=== PATIENT | female | born 1955 | race Caucasian/White ===

== ENCOUNTER 2020-07-16 12:29 | Emergency (ER) | payer OTHER, SELFPAY ==
--- NOTE | 2020-07-16 12:30 | DI.RAD_ITS ---
EXAM: XR ANKLE RT COMPLETE CLINICAL HISTORY: R/O fracture TECHNIQUE: COMPARISON: CR XR ANKLE LT COMPLETE from 07/16/2020 FINDINGS: Three views were obtained. There is a mildly displaced fracture of the distal fibula. Ankle mortise appears well maintained. There is moderate soft tissue swelling of the lateral aspect of the ankle. No additional fracture seen. IMPRESSION: RADIATION DOSE DELIVERED: Total DLP
--- NOTE | 2020-07-16 12:30 | DI.RAD_ITS ---
EXAM: XR ANKLE LT COMPLETE CLINICAL HISTORY: R/O fracture, deformity, fall TECHNIQUE: COMPARISON: CR XR ANKLE RT COMPLETE from 07/16/2020 FINDINGS: Three views of the ankle were obtained. There is marked soft tissue swelling adjacent to the lateral malleolus. There is a rounded ossific body adjacent to the tip of the lateral malleolus consistent with accessory ossicle. No evidence of acute fracture. The ankle mortise is well maintained. IMPRESSION: RADIATION DOSE DELIVERED: Total DLP
[2020-07-16 12:34] VITALS: BP 118/103; PULSE 52; RESP 18; TEMP 36.4; O2SAT 98
--- NOTE | 2020-07-16 12:35 | W.ED.GENAD ---
Discharge Plan Disposition Patient Disposition: HOME Condition: Stable Discharge Details Chief Complaint: Orthopedic Clinical Impression: Fracture of ankle, right, closed, Left ankle sprain Primary Care Provider: Stacia Moseley ED Provider: Juliana Reynolds Home Meds and New Rx's Prescriptions: New hydrocodone-acetaminophen 5-325 mg tablet 1 tab PO BID PRN (Reason: pain) Qty: 3 RF: 0 No Action sertraline 100 mg Tablet 150 mg PO DAILY RF: 0 omeprazole 20 mg Capsule,Delayed Release(Dr/Ec) 20 mg PO DAILY RF: 0 Discharge Instructions Instructions: Ankle Fracture (ED), Ankle Sprain (ED) Additional Instructions: Follow-up with orthopedics within 1 to 2 weeks. Use walking boot and splint as needed. Stay off of right ankle as much as possible. Rest, ice, compression, elevation. Take medications as needed. Please take Tylenol or Ibuprofen with food every 4-6 hours as needed for pain and swelling. Follow up with primary care provider in 3-5 days. Return to ED sooner if any worsening or concerns. Increase oral fluids. Stand Alone Forms: Physical Therapy Referral Referrals: Leandro Jo MD [ [facility] STAFF PHYSICIAN] - Medical Decision Making 65-year-old female presents to the ER via wheelchair after a trip and fall approximately 1 hour ago. Patient states that she was coming down 2 steps and her feet went out from under her landing on her left side. She reports bilateral ankle pain. She does have deformity noted to her left lateral malleolus, she also has swelling noted to her right lateral malleolus. She is nonambulatory upon arrival to the ER. Denies any loss of consciousness or hitting her head. Denies any neck back or any other injuries. She does report that she landed on her knees and her left shoulder. She took 2 [id number] Aleve prior to arrival. EXAM: XR ANKLE RT COMPLETE CLINICAL HISTORY: R/O fracture TECHNIQUE: COMPARISON: CR XR ANKLE LT COMPLETE from 07/16/2020 FINDINGS: Three views were obtained. There is a mildly displaced fracture of the distal fibula. Ankle mortise appears well maintained. There is moderate soft tissue swelling of the lateral aspect of the ankle. No additional fracture seen. EXAM: XR ANKLE LT COMPLETE CLINICAL HISTORY: R/O fracture, deformity, fall TECHNIQUE: COMPARISON: CR XR ANKLE RT COMPLETE from 07/16/2020 FINDINGS: Three views of the ankle were obtained. There is marked soft tissue swelling adjacent to the lateral malleolus. There is a rounded ossific body adjacent to the tip of the lateral malleolus consistent with accessory ossicle. No evidence of acute fracture. The ankle mortise is well maintained. Page out to orthopedics. Spoke with Leandro Jo with orthopedics who was personally able to review imaging. He recommends a walking boot to the right ankle and a splint with crutches. He also did suggest a walker if patient is unable to tolerate crutches. He recommends follow-up in 1 to 2 weeks. Prior to patient's discharge she did have an appointment set up for 1 week from Tuesday. Physical therapy consult ordered to evaluate patient for walker, care management called and she did bring down a walker to give to the patient to go home with. Discussed home care with patient, verbalized understanding. Instructed to rest, ice, compression elevation and stay off ankle as much as possible. Patient discharged to [facility] was given hydrocodone and Tylenol prior to discharge. This text was generated using [email or web address] dictation system, please disregard any oddities of phrase or misspellings. HPI General Mode of arrival: wheelchair. Date/Time Provider Initiated Documentation: 07/16/20 12:34. Limitations to Documentation: no limitations. Information obtained by: patient. HPI Narrative: 65-year-old female presents to the ER via wheelchair after a mechanical trip and fall approximately 1 hour ago. Patient states that she was coming down 2 steps and her feet went out from under her landing on her left side. She reports bilateral ankle pain. She does have deformity noted to her left lateral malleolus, she also has swelling noted to her right lateral malleolus. She is nonambulatory upon arrival to the ER. Denies any loss of consciousness or hitting her head. Denies any neck back or any other injuries. She does report that she landed on her knees and her left shoulder. She took 2 [id number] Aleve prior to arrival. Related Data Home Medications Medication Instructions Recorded Confirmed hydrocodone-acetaminophen 1 tab PO BID PRN #3 tab 07/16/20 omeprazole 20 mg PO DAILY 07/16/20 07/16/20 sertraline 150 mg PO DAILY 09/02/20 09/02/20 Previous Rx's Medication Instructions Recorded hydrocodone-acetaminophen 1 tab PO BID PRN #3 tab 07/16/20 Allergies Allergy/AdvReac Type Severity Reaction Status Date / Time azithromycin [From Zithromax] Allergy Unverified 07/16/20 12:38 erythromycin base Allergy Unverified 07/16/20 12:38 codeine AdvReac Unverified 07/16/20 12:38 Review of Systems Narrative: Constitutional: Negative for weight loss, alert and oriented, well groomed, normal body habitus, appears comfortable. HEENT: Denies trauma, headaches, blurry vision, nasal discharge, sore throat, trouble swallowing. Chest: Denies chest pain, palpitations, irregular rhythm, hypertension. Respiratory: Denies Shortness of breath, cough, hemoptysis. GI: Denies abdominal pain, nausea, vomiting, diarrhea, constipation. Musculoskeletal: Bilateral lower ankle pain after a fall. : Denies dysuria, hematuria, flank pain, rectal bleeding. Neuro: Denies dizziness, blurry vision, weakness, syncope, headache or facial numbness. Hematologic: Denies easy bruising, intolerance to heat or cold, hair loss. [facility] Social History Smoking/Tobacco Use Status: Never Alcohol Intake: current Alcohol Intake frequency: 0-2 drinks per day Substance use type: does not use Exam Narrative Exam Narrative: Constitutional: Alert and oriented x3. Appears stated age. Normal body habitus. Head: Normocephalic, no trauma. Eyes: Pupils PERRLA, Red reflex noted, EOM's intact. Eyelids symmetrical without lesions, discharge, or swelling. ENT: Bilateral TM's WNL, External ear normal to inspection, no mastoid TTP, swelling, or erythema, Nasal turbinates WNL, no nasal discharge. Normal dentition, Posterior pharynx WNL, no exudate. Chest: RRR, Normal S1, S2, distal pulses intact. Resp: Lungs clear to auscultation bilaterally, no wheezes, rales, or rhonchi. Musculoskeletal: Nonambulatory in department, left ankle deformity and swelling noted to the lateral malleolus. Right lateral malleolus tenderness as well. Intact dorsal pedal pulses bilaterally. Cap refill less than 3 seconds distally. Contusions noted to bilateral anterior shins. Knees appear within normal limits. No other injuries noted. Skin: No suspicious rashes or lesions. Capillary refill less than 2 sec. Neurologic: Cranial nerves II-XII intact. Alert and oriented x 3. DTR's intact. Hematologic/Lymphatic: No ecchymosis, no lymphadenopathy.
[2020-07-16 13:46] VITALS: BP 101/57; PULSE 58; RESP 16; O2SAT 97
[2020-07-16] MEDS: HYDROcodone 5/Acetaminophen 325 TAB PO (14:17)
--- NOTE | 2020-07-16 15:13 | IN_ITS ---
Date of service: 07/16/20 Time of Service: 15:13 PT Notes Physical Therapy Inpatient Initial Evaluation Date: 07/16/2020 Referring Doctor: Juliana Reynolds NP PT Orders: PT CONSULT: Eval/treat Precautions: Fall. Standard. WBAT on right LE with fracture boot on right LE and posterior leg splint on left LE using FWW. Patient Profile/Admitting Diagnosis: Emilia is a 65-year-old female who presents to the ED today due to a fall while negotiating steps at her home. She sustained a mildly displaced close fracture of the distal right fibula and sprain of the left ankle. She is placed in a right knee-high Aircast fracture boot and a posterior leg splint on the left side. PMHX: Unremarkable Social History/Home Situation: Lives with in a private home. Equipment Owned/DME: None Subjective: Reports pain and discomfort with weight bearing in the right ankle which limited ambulation distance today. Patient complained of being lightheaded and woozy after ambulation activity and was assisted back onto chair to rest, nurse was notified right away. Objective: General Observation: Fracture boot in the right. Posterior leg splint in the left. Mental Status: Alert and oriented x4 Pain: 6?7/10 in the right ankle ROM: Right Upper Extremity: Shoulder Flexion WFL. Shoulder abduction WFL. Elbow flexion WFL. Wrist flexion WFL. Opening and closing of hand WFL. Left Upper Extremity: Shoulder Flexion WFL. Shoulder abduction WFL. Elbow flexion WFL. Wrist flexion WFL. Opening and closing of hand WFL. Right Lower Extremity: Hip flexion WFL. Hip abduction WFL. Knee flexion WFL. Ankle dorsiflexion NT. Ankle plantarflexion NT. Left Lower Extremity: Hip flexion WFL. Hip abduction WFL. Knee flexion WFL. Ankle dorsiflexion NT. Ankle plantarflexion NT. Strength: Right Upper Extremity: Shoulder flexors 5/5. Shoulder abductors 5/5. Elbow flexors 5/5. Elbow extensors 5/5. Fruit [employer] Agent strong. Left Upper Extremity: Shoulder flexors 5/5. Shoulder abductors 5/5. Elbow flexors 5/5. Elbow extensors 5/5. Fruit Express Agent strong. Right Lower Extremity: Hip flexors 5/5. Hip abductors 5/5. Knee flexors 5/5. Marlene nayak extensors 5/5. Ankle dorsiflexors NT. Ankle plantarflexors NT. Left Lower Extremity:Hip flexors 5/5. Hip abductors 5/5. Knee flexors 5/5. Knee extensors 5/5. Ankle dorsiflexors NT. Ankle plantarflexors NT. Sensation: Intact as to pain and pressure on bilateral lower extremities. Bed Mobility/Transfers: Supine to sit supervision Sit to supine supervision Sit to stand standby assist Stand to sit standby assist Bed to chair standby assist Chair to bed standby assist Gait: Tolerated short distance ambulation of 20 feet using front wheeled walker with WBAT on BLE with Aircast fracture boot in the right and posterior leg splint in the left with complaints of 6?7/10 pain in the right ankle. Patient reports being woozy and lightheaded after ambulation activity which was right away reported to the nurse. Balance: Static Sitting: Normal Dynamic Sitting: Normal Static Standing: Fair Dynamic Standing: Fair Special Tests: Mobility Limitations Standardized Measure [facility] 6 clicks Basic Mobility Inpatient Short Form: Raw Score: 1750% deficit CMS Score: 50% deficit Informed Consent/Education: Patient instructed in purpose of PT consult and plan of care. Assessment: Emilia demonstrates significant functional mobility decline requiring the use of front wheel walker for all mobility ADL performance, difficulty with walking, impairment with balance, and generalized weakness resulting from admitting diagnosis/fall. Emilia is a 65-year-old female who presents to the ED today due to a fall while negotiating steps at her home. She sustained a mildly displaced close fracture of the distal right fibula and sprain of the left ankle. She is placed in a right knee-high Aircast fracture boot and a posterior leg splint on the left side. Education and training was provided today for the patient and the proper management of walk for all mobility ADL performance. Patient presents with clinical signs and symptoms consistent with c urrent/admitting diagnoses that have resulted to mobility limitations, gait instability, generalized weakness, and impairment of motor control as demonstrated by the following impairment level findings: 1. Decreased strength to right ankle major muscle groups 2. Impaired sitting/standing balance 3. Impaired activity tolerance 4. Limitation of joint range of motion in right ankle 5. Painful weight bearing on the right side 6. Unequal leg length due to Aircast boot added height Impairments are contributing to the following functional limitations: 1. Inability to safely ambulate without assistive device 2. Increase completion time for mobility ADL performance 3. Increased fall risk 4. Inability to negotiate steps alone safely Patient is assessed as a [id number] moderate complexity based on the following: History: 65-year-old female with impairment level findings, functional limitations, and past medical history as indicated above Examination: Demonstrable impairment in strength, balance, and mobility level with underlying impairments and functional limitations as documented above Presentation:Evolving Decision Makin moderate complexity Goals: N/A. PT consult only. Plan of Care/Treatment Plan: N/A. PT consult only. DISCHARGE RECOMMENDATIONS: Patient will benefit from home health PT services in order to progress mobility level using least restrictive assistive ambulatory device, assess home safety, identify additional equipment needs, and establish a functional maintenance program that will increase ability of patient to remain at home. TREATMENT CODE/TIME: 54519 x 22 minutes beginning at 15:13 PM. Thank you for the opportunity to participate in the care of this patient. Kaylin Sanz PT, DPT, CLT [facility] [place], [place]
--- NOTE | 2020-07-16 15:29 | NUR.NOTE ---
pt getting evaluated by physical therapy to see if she can use a walker. her has taken her RX to the drug store Nursing Note:
[2020-07-16 15:48] VITALS: PULSE 74; RESP 16; O2SAT 98
== END 2020-07-16 15:40 | disposition home or self-care (01) ==
LOC: ER 14:47
PROVIDERS: Emergency Provider Registered Nurse Emergency; PCP Internal Medicine Adolescent Medicine
DX: S82.61XA Displaced fracture of lateral malleolus of right fibula, initial encounter for closed fracture (principal); S93.402A Sprain of unspecified ligament of left ankle, initial encounter; W10.8XXA Fall (on) (from) other stairs and steps, initial encounter
CPT/HCPCS: 27786; 29515; 97162; 99282; 73610; 99281; E0114; L4361

== ENCOUNTER 2020-10-11 21:00 | Emergency (ER) | payer OTHER, SELFPAY ==
--- NOTE | 2020-10-11 21:00 | DI.RAD_ITS ---
EXAM: XR HAND LT COMPLETE CLINICAL HISTORY: dog bite. TECHNIQUE: 2D digital imaging was performed. COMPARISON: No exams were available for comparison FINDINGS: There is no evidence of acute fracture or dislocation. No osseous lesions. Advanced degenerative ch anges are noted at the articulation between the thumb metacarpal and trapezium. IMPRESSION: No fractures. Advanced degenerative changes at the 1st carpometacarpal joint. DATA REPOSITORY: RADIATION DOSE DELIVERED:
--- NOTE | 2020-10-11 21:00 | DI.RAD_ITS ---
EXAM: XR FOREARM LT CLINICAL HISTORY: dog bite. TECHNIQUE: 2D digital imaging was performed. COMPARISON: No exams were available for comparison FINDINGS: There is abnormal soft tissue swelling on the dorsal medial aspect the mid forearm level. No fractur e. No osseous lesions. No radiopaque foreign body. IMPRESSION: Dorsal soft tissue swelling of the mid forearm. No radiopaque foreign body. No fracture. DATA REPOSITORY: RADIATION DOSE DELIVERED:
--- NOTE | 2020-10-11 21:00 | DI.RAD_ITS ---
EXAM: XR ELBOW LT COMPLETE CLINICAL HISTORY: dog bite. TECHNIQUE: 2D digital imaging was performed. COMPARISON: No exams were available for comparison FINDINGS: Is no evidence of fracture nor joint effusion. There is no swelling of the olecranon bursa. Radial head and capitellum appear unremarkable. No degenerative changes. No osseous lesions. No radiopaqu e foreign body IMPRESSION: No significant radiographic findings in left elbow. DATA REPOSITORY: RADIATION DOSE DELIVERED:
--- NOTE | 2020-10-11 21:02 | W.ED.GENAD ---
Discharge Plan Disposition Patient Disposition: HOME Condition: Good Discharge Details Clinical Impression: Dog bite of extremity Primary Care Provider: Stacia Moseley ED Provider: Adonay Contreras Meds and New Rx's Prescriptions: New amoxicillin-pot clavulanate 875-125 mg tablet 1 tab PO BID Qty: 18 RF: 0 Continued sertraline 100 mg Tablet 150 mg PO DAILY RF: 0 omeprazole 20 mg Capsule,Delayed Release(Dr/Ec) 20 mg PO DAILY RF: 0 Eliquis 2.5 mg tablet 2.5 mg PO Q OTHER DAY RF: 0 Discharge Instructions Instructions: Animal Bite (ED) Additional Instructions: It will be important to keep the arm elevated to prevent swelling. You may ice on and off over the next couple of days. Leave the dressing in place. Please return here at around 7 AM Tuesday so that I can check your wounds. Take Augmentin as directed. Use Acampo if needed for severe pain. Otherwise try to get by with Tylenol. Return to ED for significantly worsening pain, weakness, numbness, high fever. Referrals: [facility] [Provider Group] Medical Decision Making Patient with multiple dog bites involving left upper extremity. IV established and morphine and Zofran given. Patient sent to x-ray. Left elbow, forearm, hand all negative for fracture or foreign body. Patient tetanus status updated. Patient given dose of IV Unasyn. No evidence on exam of neurovascular injury or tendon injury. All wounds anesthetized with 1% lidocaine with epinephrine. Irrigated with copious amounts of normal saline. Elbow wound down to muscle but did not involve fascia or muscle. Gaping in nature and required subcutaneous and skin closure. Puncture wound in bicep area left open. Forearm with significant swelling and hematoma. Puncture wound on the volar aspect irrigated but left open. Laceration on dorsal mid forearm closed after copious irrigation. Laceration to base of thumb superficial involving only skin. This was also closed. We discussed at length risk of infection. We discussed signs and symptoms to return to ED for including numbness, weakness, discoloration of fingers. We discussed how important will be to keep the arm elevated. Dressings that I have applied are to remain in place until Tuesday. I have asked her to return here Tuesday for a wound check as I will be present. She will continue on Augmentin. She is given for Acampo tablets to go for use if required for extreme pain. Discharged in good condition. HPI General Mode of arrival: ambulatory. Date/Time Provider Initiated Documentation: 10/11/20 21:02. Limitations to Documentation: no limitations. Information obtained by: patient and RN notes reviewed. HPI Narrative: Patient presents to ED with multiple dog bites to her left upper extremity. Patient was attacked by her own dog. Dog was a rescue and there are just getting to know it. It is up-to-date on all of shots. She is unsure of her tetanus status. She sustained injury to the hand forearm and elbow. She is right-hand dominant. Denies injury elsewhere other than left upper extremity. Related Data Home Medications Medication Instructions Recorded Confirmed omeprazole 20 mg PO DAILY 07/16/20 10/11/20 sertraline 150 mg PO DAILY 07/16/20 10/11/20 Eliquis 2.5 mg PO Q OTHER DAY 10/11/20 10/11/20 amoxicillin-pot clavulanate 1 tab PO BID #18 tab 10/11/20 Previous Rx's Medication Instructions Recorded amoxicillin-pot clavulanate 1 tab PO BID #18 tab 10/11/20 Allergies Allergy/AdvReac Type Severity Reaction Status Date / Time azithromycin [From Zithromax] Allergy Unverified 10/11/20 21:07 erythromycin base Allergy Unverified 10/11/20 21:07 codeine AdvReac Unverified 10/11/20 21:07 General JASWINDER: 3 Review of Systems Narrative: As documented in HPI otherwise negative as below. Const: no fever, chills, weakness Resp: no cough, SOB, pleuritic pain CV: no CP, diaphoresis, edema, syncope GI: no abdominal pain, nausea, vomiting, diarrhea Neuro: no headache, numbness, focal weakness, confusion PFSH Medical History Anxiety GERD (gastroesophageal reflux disease) Pulmonary embolism Surgical History S/P TKR (total knee replacement) Social History Smoking/Tobacco Use Status: Never Smoking risk assessment performed?: Yes Alcohol Intake: current Alcohol Intake frequency: 0-2 drinks per day Substance use type: does not use Do you feel safe at home: Yes Do you feel safe in your relationship?: Yes Exam Narrative Exam Narrative: Const: WDWN female in NAD. HEENT: NC/AT. Normal facial exam. Eyes: Normal conjunctiva and sclera. Neck: Supple. Trachea midline. Lungs: Normal respiratory effort. Cor: Good radial pulses. Neuro: A+O x 3. Normal speech, mentation, gait. Cranial nerves II - XII grossly intact. No gross motor or sensory deficit. Ext: Left upper extremity with significant swelling mid forearm. Bite wounds noted to elbow area, mid forearm, hand. Normal range of motion of elbow wrist and hand. Normal sensation distally. Normal strength distally with good customer service engineer strength, extension of fingers including thumb, flexion/extension of wrist. Skin: Left upper extremity with gaping wound just proximal to the lateral elbow. Bite wound with skin tear and large hematoma involving mid forearm. Bite wound/skin tear base of thumb dorsally. Procedures Laceration Laceration 1: Site: upper extremity Side (If applicable): left Size (cm): 3.5 Description: stellate and irregular Depth: simple, single layer Local Anesthetic: Lidocaine 1% and with Epi Amount of anesthesia used (mL): 4 Pre-repair: wound explored, irrigated extensively and deep structures intact Skin layer closed with: nylon Size (cm): 4-0 Number of sutures: 7 Technique: simple, interrupted Subcutaneous layer closed with: vicryl Size: 5-0 Number of sutures: 4 Technique: simple, interrupted Laceration 2: Site: upper extremity Side (If applicable): left Size (cm): 1.5 Description: linear Depth: simple, single layer Local Anesthetic: Lidocaine 1% and with Epi Amount of anesthesia used (mL): 2 Pre-repair: wound explored, irrigated extensively and deep structures intact Skin layer closed with: nylon Size (cm): 4-0 Number of sutures: 3 Laceration 3: Site: hand Side (If applicable): left Size (cm): 1.5 Description: linear Depth: simple, single layer Local Anesthetic: Lidocaine 1% and with Epi Amount of anesthesia used (mL): 2 Pre-repair: wound explored, irrigated extensively and deep structures intact Skin layer closed with: nylon Size (cm): 5-0 Number of sutures: 3
[2020-10-11 21:05] VITALS: BP 140/85; PULSE 68; RESP 16; TEMP 36.2; O2SAT 95
[2020-10-11] MEDS: Ondansetron 4 MG/2 ML VIAL IVP (21:30)
--- NOTE | 2020-10-11 22:00 | DI.VRAD_ITS ---
PROCEDURE INFORMATION: Exam: XR Left Forearm Exam date and time: 10/11/2020 9:45 PM Age: 65 years old Clinical indication: Injury or trauma; Other: Dog bite; Elbow and arm, lower and wrist and hand; Left TECHNIQUE: Imaging protocol: XR Left forearm. Views: 2 views. COMPARISON: No relevant prior studies available. FINDINGS: Bones/joints: Mild degenerative changes in the wrist. No acute fracture. Dorsal soft tissue swelling of the mid forearm. Soft tissues: No radiopaque foreign body. IMPRESSION: Dorsal soft tissue swelling of the mid forearm. Dictated and Authenticated by: Maximus White MD. Ordering:ROSY Urias MD
--- NOTE | 2020-10-11 22:00 | DI.VRAD_ITS ---
PROCEDURE INFORMATION: Exam: XR Left Hand Exam date and time: 10/11/2020 9:17 PM Age: 65 years old Clinical indication: Injury or trauma; Other: Dog bite; Elbow and arm, lower and wrist and hand; Left; Injury date: 10/11/20 TECHNIQUE: Imaging protocol: XR Left hand. Views: 3 or more views. COMPARISON: No relevant prior studies available. FINDINGS: Bones/joints: Degenerative change of the 1st carpometacarpal joint. No acute fracture. Element of osteopenia. Soft tissues: Normal. IMPRESSION: No acute finding. Dictated and Authenticated by: Maximus White MD. Ordering:ROSY Urias MD
--- NOTE | 2020-10-11 22:03 | DI.VRAD_ITS ---
PROCEDURE INFORMATION: Exam: XR Left Elbow Exam date and time: 10/11/2020 9:51 PM Age: 65 years old Clinical indication: Injury or trauma; Other: Dogbite; Elbow and arm, lower and wrist and hand; Left TECHNIQUE: Imaging protocol: XR Left elbow. Views: 3 or more views. COMPARISON: No relevant prior studies available. FINDINGS: Bones/joints: Normal. Soft tissues: Normal. IMPRESSION: No acute findings. Dictated and Authenticated by: Maximus White MD. Ordering:ROSY Urias MD
[2020-10-11] MEDS: Tetanus & Diphtheria Tox,ADULT 0.5 ML VIAL IM (22:38)
[2020-10-11] MEDS: AMPICILLIN/SULBACTAM 3 GM in Normal Saline 100 ML IVPB (22:38)
[2020-10-11 23:41] VITALS: BP 103/55; PULSE 63; RESP 16; O2SAT 96
[2020-10-11] MEDS: Amox. 875/Clav. 125, 2 TABS/BTL 1 TAB PO (23:58)
--- NOTE | 2020-10-12 07:41 | NUR.NOTE ---
Addendum entered by Marlyn Augustine 10/12/20 07:43: [facility]. Marlyn Augustine Original Note: Nursing Note: Animal bite report form faxed to [facility]. Health officer is Chair of the [employer]
== END 2020-10-11 23:50 | disposition home or self-care (01) ==
PROVIDERS: Emergency Provider Emergency Medicine; PCP Internal Medicine Adolescent Medicine
DX: S51.852A Open bite of left forearm, initial encounter (principal); S61.052A Open bite of left thumb without damage to nail, initial encounter; S41.152A Open bite of left upper arm, initial encounter; W54.0XXA Bitten by dog, initial encounter
CPT/HCPCS: 12002; 12032; 90471; 96365; 96375; 99282; 73080; 73090; 73130; 99281; J0295; J2405

== ENCOUNTER 2020-10-13 06:45 | Emergency (ER) | payer OTHER, SELFPAY ==
[2020-10-13 06:48] VITALS: BP 111/68; PULSE 64; RESP 14; O2SAT 96
--- NOTE | 2020-10-13 06:50 | ED.GENADUL_ITS ---
Discharge Plan Disposition Patient Disposition: HOME Condition: Good Discharge Details Clinical Impression: Encounter for post-traumatic wound check Primary Care Provider: Stacia Moseley ED Provider: Adonay Contreras Meds and New Rx's Prescriptions: Continued sertraline 100 mg Tablet 150 mg PO DAILY RF: 0 omeprazole 20 mg Capsule,Delayed Release(Dr/Ec) 20 mg PO DAILY RF: 0 Eliquis 2.5 mg tablet 2.5 mg PO Q OTHER DAY RF: 0 amoxicillin-pot clavulanate 875-125 mg tablet 1 tab PO BID Qty: 18 RF: 0 Discontinued hydrocodone-acetaminophen 5-325 mg tablet 1 tab PO BID PRNRF: 0 Discharge Instructions Instructions: Acute Wound Care (ED) Additional Instructions: Overall things look very good. No sign of infection. Wound care once or twice daily as we discussed. Antibiotic ointment and Telfa dressings. Continue antibiotic. Continue to keep arm elevated. Acetaminophen or ibuprofen if needed for pain. Recheck and probable suture removal next weekend. Return to ED for signs of infection. Referrals: [facility] [Provider Group] Medical Decision Making Patient here for wound check. Overall things look good. We will start dressing changes and explained wound care to patient. She reports that her is a psychiatrist and will be able to manage her wounds. Recheck over the weekend for repeat wound check and likely suture removal. Continue Augmentin. Continue to keep hand elevated. Should be able to use acetaminophen or ibuprofen as needed. Return to ED if any evidence of infection. HPI General Mode of arrival: ambulatory . Date/Time Provider Initiated Documentation: 10/13/20 06:49 . Limitations to Documentation: no limitations . Information obtained by: patient and RN notes reviewed . HPI Narrative: Patient returns to ED as instructed for wound check. Patient was seen by me and had multiple dog bite to the left upper extremity repaired. She was asked to return this morning for wound check. She has left the dressings in place. She has had no numbness or weakness. She has some pain at the thumb but overall is doing well. Related Data Home Medications Medication Instructions Recorded Confirmed omeprazole 20 mg PO DAILY 07/16/20 10/13/20 sertraline 150 mg PO DAILY 07/16/20 10/13/20 Eliquis 2.5 mg PO Q OTHER DAY 10/11/20 10/13/20 amoxicillin-pot clavulanate 1 tab PO BID #18 tab 10/11/20 10/13/20 Previous Rx's Medication Instructions Recorded amoxicillin-pot clavulanate 1 tab PO BID #18 tab 10/11/20 Allergies Allergy/AdvReac Type Severity Reaction Status Date / Time azithromycin [From Zithromax] Allergy Unverified 10/13/20 06:55 erythromycin base Allergy Unverified 10/13/20 06:55 codeine AdvReac Unverified 10/13/20 06:55 General JASWINDER: 3 Review of Systems Constitutional Constitutional: Denies fever(s) and Denies weakness Musculoskeletal Musculoskeletal: Denies numbness and Denies tingling Integumentary/Breasts Skin/Breast: Reports wounds Neurologic Neurologic: Denies numbness, Denies tingling and Denies weakness PFSH Medical History Anxiety GERD (gastroesophageal reflux disease) Pulmonary embolism Surgical History S/P TKR (total knee replacement) Social History Smoking/Tobacco Use Status: Never Smoking risk assessment performed?: Yes Alcohol Intake: current Alcohol Intake frequency: 0-2 drinks per day Substance use type: does not use Do you feel safe at home: Yes Do you feel safe in your relationship?: Yes Exam Const General: cooperative and no acute distress Orientation: alert and oriented x3 Resp Effort & Inspection: normal respiratory effort Skin Other: Left upper extremity wounds look good. There is no erythema or drainage. Sutures are in place. Wound by her elbow does have some small portions of the skin flap becoming necrotic. Overall wounds look good. Neuro General: patient alert and patient oriented x3 Motor: strength 5/5 throughout Sensory Exam: no sensory deficits noted Extrem Other: Left upper extremity swelling has gone down significantly. Continues to have normal range of motion though decreased at the thumb because of where one of the dog bites is positioned. There is no redness or swelling related to deep injury.
== END 2020-10-13 07:33 | disposition home or self-care (01) ==
PROVIDERS: Emergency Provider Emergency Medicine; PCP Internal Medicine Adolescent Medicine
DX: S51.852A Open bite of left forearm, initial encounter (principal); W54.0XXA Bitten by dog, initial encounter; Z04.1 Encounter for examination and observation following transport accident

== ENCOUNTER 2020-10-20 06:29 | Emergency (ER) | payer OTHER, SELFPAY ==
--- NOTE | 2020-10-20 06:30 | ED.GENADUL_ITS ---
Discharge Plan Disposition Patient Disposition: HOME Condition: Good Discharge Details Clinical Impression: Encounter for removal of sutures Primary Care Provider: Stacia Moseley ED Provider: Adonay Contrerass and New Rx's Prescriptions: Continued sertraline 100 mg Tablet 150 mg PO DAILY RF: 0 omeprazole 20 mg Capsule,Delayed Release(Dr/Ec) 20 mg PO DAILY RF: 0 Eliquis 2.5 mg tablet 2.5 mg PO Q OTHER DAY RF: 0 amoxicillin-pot clavulanate 875-125 mg tablet 1 tab PO BID Qty: 18 RF: 0 Discharge Instructions Instructions: Acute Wound Care (ED) Additional Instructions: Dressing changes once a day with showering as we talked about. No need for further follow up unless infection. It looks very good and should continue to heal well. Medical Decision Making Overall, I am very pleased with the way the wounds have healed. Sutures removed by me. One Steri-Strip applied for mid-forearm wound. Otherwise everything looks good. Some areas where the skin has sloughed will reepithelialize. No evidence of infection. At this point she has one day of antibiotic left. Continue dressing changes once a day until completely healed. No need for follow-up unless signs of infection. HPI General Mode of arrival: ambulatory . Date/Time Provider Initiated Documentation: 10/20/20 06:30 . Limitations to Documentation: no limitations . Information obtained by: patient . HPI Narrative: Patient here for suture removal. Patient had dog bite wounds repaired by me 1 week ago. She had a wound check 2 days after and is here now for suture removal. No complaints of fever, redness, swelling. Still has pain and bruising but seems to be healing well. Related Data Home Medications Medication Instructions Recorded Confirmed omeprazole 20 mg PO DAILY 07/16/20 10/13/20 sertraline 150 mg PO DAILY 07/16/20 10/13/20 Eliquis 2.5 mg PO Q OTHER DAY 10/11/20 10/13/20 amoxicillin-pot clavulanate 1 tab PO BID #18 tab 10/11/20 10/13/20 Previous Rx's Medication Instructions Recorded amoxicillin-pot clavulanate 1 tab PO BID #18 tab 10/11/20 Allergies Allergy/AdvReac Type Severity Reaction Status Date / Time azithromycin [From Zithromax] Allergy Unverified 10/13/20 06:55 erythromycin base Allergy Unverified 10/13/20 06:55 codeine AdvReac Unverified 10/13/20 06:55 General JASWINDER: 3 Review of Systems Constitutional Constitutional: Denies fever(s) Integumentary/Breasts Skin/Breast: Denies erythema and Reports wounds PFSH Medical History Anxiety GERD (gastroesophageal reflux disease) Pulmonary embolism Surgical History S/P TKR (total knee replacement) Social History Smoking/Tobacco Use Status: Never Smoking risk assessment performed?: Yes Alcohol Intake: current Alcohol Intake frequency: 0-2 drinks per day Substance use type: does not use Do you feel safe at home: Yes Do you feel safe in your relationship?: Yes Exam Narrative Exam Narrative: Wound near elbow well-healed with some skin loss. Overall looks very well. Sutures intact. No erythema or drainage. Wound to the mid forearm completely intact and healed. Wounds at the base of the thumb with no erythema or drainage. The wound not closed because it was so superficial still has some healing to do but is iintact. Significant old bruising present along the length of the extremities. NVI with good strength and sensation.
[2020-10-20 06:34] VITALS: BP 128/79; PULSE 66; RESP 16; TEMP 36.3; O2SAT 96
== END 2020-10-20 07:00 | disposition home or self-care (01) ==
PROVIDERS: Emergency Provider Emergency Medicine; PCP Internal Medicine Adolescent Medicine
DX: S51.852D Open bite of left forearm, subsequent encounter (principal); S61.052D Open bite of left thumb without damage to nail, subsequent encounter; S41.152D Open bite of left upper arm, subsequent encounter; W54.0XXD Bitten by dog, subsequent encounter; Z48.02 Encounter for removal of sutures

== ENCOUNTER 2023-04-05 20:46 | Emergency (ER) | payer MEDICARE, SELFPAY ==
--- NOTE | 2023-04-05 20:45 | DI.RAD_ITS ---
Exam(s) XR WRIST RT COMPLETE EXAM: XR WRIST RT COMPLETE CLINICAL HISTORY: DANA, Injury. TECHNIQUE: 2D digital imaging was performed. COMPARISON: No exams were available for comparison FINDINGS: 3 views An acute predominately transverse fracture of the distal radius minimal displacement. Fracture line appears to possibly involves the radiocarpal joint surface, medially. There is also an avulsed fract ure of the ulnar styloid tip. No significant ulnar variance. No scaphoid fracture scapholunate dist ance is normal. Degenerative changes are noted in 1st carpometacarpal joint and try scaphoid joint. IMPRESSION: Fracture distal radius and ulnar styloid. DATA REPOSITORY: RADIATION DOSE DELIVERED:
[2023-04-05 20:49] VITALS: PULSE 51; RESP 18; O2SAT 98
[2023-04-05 20:50] VITALS: BP 116/65
[2023-04-05 20:52] VITALS: TEMP 36.7
--- NOTE | 2023-04-05 20:54 | W.ED.GENAD ---
Discharge Plan Disposition Patient Disposition: Home Condition: Stable Discharge Details Clinical Impression: Closed fracture distal radius and ulna Primary Care Provider: Unknown,Unknown ED Provider: Juliana Reynolds Home Meds and New Rx's Prescriptions: No Action sertraline 100 mg Tablet 150 mg PO DAILY omeprazole 20 mg Capsule,Delayed Release(Dr/Ec) 20 mg PO DAILY amoxicillin-pot clavulanate 875-125 mg tablet 1 tab PO BID Qty: 18 0RF Patient Comments: not taking Discharge Instructions Instructions: Wrist Fracture in Adults (ED) Additional Instructions: Please follow-up with orthopedics in the next 1 to 2 weeks. Do not get the splint wet. You may loosen the Kwan wrap if your fingers turn cold blue numb or tingly. Keep it elevated above the level of your heart while you are sitting or lying down. Please take Tylenol or Ibuprofen with food every 4-6 hours as needed for pain and swelling. Referrals: Joe Muniz MD [ [facility] STAFF PHYSICIAN] - 1 week Discharge Data Discharge Date/Time-TO BE ENTERED AT DEPARTURE: 04/05/23 23:31 Medical Decision Making 68-year-old female presents to the ER after a mechanical trip and fall over her dog with a FOOSH type injury onto her right wrist. Patient does have some dorsal deformity, CMS intact distally. Denies any elbow tenderness to palpation. Denied hitting her head. No loss of consciousness no neck pain no headache. No other injuries. XR ordered, Zofran 4 mg ODT ordered, patient is complaining of nausea. Discussed x-rays with Dr. Muniz who is on-call for orthopedic surgery he recommends finger traps and a clamshell or sugar-tong splint a hematoma block and mild reduction. I will discuss this with the patient. Discussed procedure for hematoma block and reduction she verbalizes understanding and is in agreement with the plan. She did drive herself here so would like some nonsedating analgesia. 800 mg ibuprofen ordered. Hematoma block performed with 7 mls of 1% lidocaine. See procedure note. Patient tolerated well. Anesthesia achieved. Pain was significantly reduced. Capillary refill vascular status and orthopedic range of motion was intact prior to anesthesia infiltration. Plaster splint applied reverse sugar-tong/clamshell. Distal CMS intact post application. Postreduction x-rays ordered. And a forearm x-ray ordered due to patient complaint of pain. Postreduction images show successful reduction of the fracture. Patient was given a sling discussed on home care and follow-up verbalized understanding. Patient was discharged in hemodynamically stable condition. This text was generated using [employer] system, please disregard any oddities of phrase or misspellings. Imaging Data Radiologic Study: Imaging: X-Ray Radiologist's impression: Views: 3 or more views. COMPARISON: No relevant prior studies available. FINDINGS: Bones/joints: Mildly displaced ulnar styloid fracture. Mildly displaced and angulated transverse distal radial fracture. The dorsal articular lip may be involved. Mild 1st carpometacarpal and severe triscaphe degenerative joint changes. Soft tissues: Unremarkable. IMPRESSION: 1. Mildly displaced and angulated distal radial fracture, likely involving the dorsal margin of the articular surface. 2. Mildly displaced ulnar styloid fracture. 3. Triscaphe and 1st carpometacarpal osteoarthritis. Thank you for allowing us to participate in the care of your patient. Dictated and Authenticated by: Giancarlo Torres MD Radiologic Study #2: Imaging: X-Ray Radiologist's impression: COMPARISON: CR XR WRIST RT COMPLETE 04/05/2023 9:09 PM FINDINGS: Limitations: Splint material obscures osseous and soft tissue detail. Bones/joints: Closed reduction results in neutral volar tilt of the distal radial fracture. Soft tissues: Unremarkable. IMPRESSION: Successful closed reduction of distal radial fracture. Thank you for allowing us to participate in the care of your patient. Dictated and Authenticated by: Giancarlo Torres MD [facility] General Mode of arrival: ambulatory. Date/Time Provider Initiated Documentation: 04/05/23 20:46. Limitations to Documentation: no limitations. Information obtained by: patient, RN notes reviewed and old records reviewed. HPI Narrative: 68-year-old female presents to the ER after a mechanical trip and fall over her dog with a FOOSH type injury onto her right wrist. Patient does have some dorsal deformity, CMS intact distally. Denies any elbow tenderness to palpation. Denied hitting her head. No loss of consciousness no neck pain no headache. No other injuries. Related Data Home Medications Medication Instructions Recorded Confirmed omeprazole 20 mg capsule,delayed 20 mg PO DAILY 07/16/20 04/05/23 release sertraline 100 mg tablet 150 mg PO DAILY 07/16/20 04/05/23 amoxicillin 875 mg-potassium 1 tab PO BID #18 tabs 10/11/20 10/13/20 clavulanate 125 mg tablet Previous Rx's Medication Instructions Recorded amoxicillin 875 mg-potassium 1 tab PO BID #18 tabs 10/11/20 clavulanate 125 mg tablet Allergies Allergy/AdvReac Type Severity Reaction Status Date / Time azithromycin [From Zithromax] Allergy Unverified 04/05/23 20:51 erythromycin base Allergy Unverified 04/05/23 20:51 codeine AdvReac Unverified 04/05/23 20:51 General Stated Complaint: Orthopedic JASWINDER: 3 Review of Systems All systems reviewed & are unremarkable except as noted in HPI and below Musculoskeletal Musculoskeletal: Reports as per HPI, Reports deformity, Reports arthralgias and Reports joint swelling PFSH All Active Problems (Updated 04/05/23 @ 22:57 by Juliana Reynolds NP) Closed fracture distal radius and ulna (Acute) S/P TKR (total knee replacement) (Chronic) GERD (gastroesophageal reflux disease) (Chronic) Anxiety (Chronic) Pulmonary embolism (Chronic) Social History Smoking/Tobacco Use Status: Never Smoking risk assessment performed?: Yes Alcohol Intake: current Alcohol Intake frequency: 0-2 drinks per day Substance use type: does not use Do you feel safe at home: Yes Do you feel safe in your relationship?: Yes Exam Narrative Exam Narrative: General: Well Developed, Awake and Alert, conversant. Skin: Warm and Dry HEENT: Head: No palpable deformities, Normocephalic Eyes: Pupils PERRLA, EOM's intact. No periorbital eccymosis or step off Ears: Canal patent. Tympanic membranes are clear . No kaur's sign, no hemptympanum. Nose/Face: Atraumatic. Facial bones nontender to palpation and stable with manipulation. Mouth/Throat: No intraoral trauma. Teeth and mandible are intact. Neck: No midline tenderness, no step off, no deformity to palpation of C-spine. Trachea midline. Chest: No surface trauma. Nontender without crepitus or deformity. Lungs clear to ausculatation bilaterally. Heart: RRR, no rubs, murmurs or gallop. Abdomen: No abrasions, ecchymosis, or surface trauma. Nondistended. Nontender to palpation no guarding, rebound, or rigidity. Pelvis: Nontender to palpation and stable to compression. Femoral pulses strong and equal Extremities: 2 superficial abrasions noted to her left forearm and right elbow. Sensation intact. Peripheral pulses intact and equal. Dorsal swelling noted to the right wrist radial pulses intact distal CMS intact cap refill less than 2 seconds. Neuro: ANO x4, GCS 15, cranial nerves II through XII intact. Motor and sensory exam nonfocal. Reflexes are symmetric. Extrem Right upper extremity: wrist Details: tenderness Location: of the dorsal wrist and swelling Location: of the dorsal wrist Course Vital Signs Vital signs: Vital Signs Pulse 51 L 04/05/23 20:49 Respiratory Rate 18 04/05/23 20:49 Pulse Oximetry 98 04/05/23 20:49 Temperature 36.7 C 04/05/23 20:52 Temperature Source Oral 04/05/23 20:52 Pulse 51 L 04/05/23 20:49 Respiratory Rate 18 04/05/23 20:49 Respiratory Effort Normal, Non-Labored 04/05/23 20:50 Blood Pressure 116/65 04/05/23 20:50 Pulse Oximetry 98 04/05/23 20:49 Oxygen Delivery Method Room Air 04/05/23 20:49 Oxygen Flow Rate 0 04/05/23 20:49 Procedures Orthopedic Fracture Reduction Fracture #1: Time Out Performed: Yes Side: right Fracture Reduction Location: radius and ulna Analgesia: hematoma block (7ml 1% Lidocaine) Technique: direct manipulation and traction/counter-traction Post Reduction X-rays Demonstrate: anatomical reduction Post-reduction neuro exam: intact Post-reduction vascular exam: intact Splint Applied: Yes Patient Tolerated Procedure: well and no complications Orthopedic Splinting/Casting Injury #1: Side: right Upper Extremity Injury Location: wrist Upper Extremity Immobilizer: sugartong splint (rEVERSE SUGAR TONG) and wrist splint
[2023-04-05] MEDS: Ondansetron O.D.T. 4 MG TABEF PO (20:58)
--- NOTE | 2023-04-05 21:34 | DI.VRAD_ITS ---
PROCEDURE INFORMATION: Exam: XR Right Wrist Exam date and time: 04/05/2023 9:09 PM Age: 68 years old Clinical indication: Injury or trauma; Fall; Bleeding/hemorrhage; Wrist; Right; Injury date: 04/05/23; Injury details: Foosh injury TECHNIQUE: Imaging protocol: Radiologic exam of the right wrist. Views: 3 or more views. COMPARISON: No relevant prior studies available. FINDINGS: Bones/joints: Mildly displaced ulnar styloid fracture. Mildly displaced and angulated transverse distal radial fracture. The dorsal articular lip may be involved. Mild 1st carpometacarpal and severe triscaphe degenerative joint changes. Soft tissues: Unremarkable. IMPRESSION: 1. Mildly displaced and angulated distal radial fracture, likely involving the dorsal margin of the articular surface. 2. Mildly displaced ulnar styloid fracture. 3. Triscaphe and 1st carpometacarpal osteoarthritis. Dictated and Authenticated by: Giancarlo Torres MD. Ordering:MIAN Andrews MD
[2023-04-05] MEDS: Ibuprofen 800 MG TAB PO (21:43)
--- NOTE | 2023-04-05 22:00 | DI.RAD_ITS ---
Exam(s) XR WRIST RT LIMITED EXAM: XR WRIST RT LIMITED CLINICAL HISTORY: pOST REDUCTION. TECHNIQUE: 2D digital imaging was performed. COMPARISON: CR,XR XR WRIST RT COMPLETE from 04/05/2023 FINDINGS: Two in cast views, compared to pre reduction images There is improved alignment the distal radius fracture site. Ulnar styloid tip fractures difficult t o evaluate through the cast material. IMPRESSION: Improved appearance post closed reduction DATA REPOSITORY: RADIATION DOSE DELIVERED:
--- NOTE | 2023-04-05 22:00 | DI.RAD_ITS ---
Exam(s) XR FOREARM RT EXAM: XR FOREARM RT CLINICAL HISTORY: Fall. TECHNIQUE: 2D digital imaging was performed. COMPARISON: CR,XR XR FOREARM LT from 10/11/2020 FINDINGS: Two views In splint views reveal improved alignment of the distal radius fracture site.v there are no fractures evident in the forearm bones more proximally. IMPRESSION: Satisfactory appearance. DATA REPOSITORY: RADIATION DOSE DELIVERED:
--- NOTE | 2023-04-05 23:00 | DI.VRAD_ITS ---
PROCEDURE INFORMATION: Exam: XR Right Wrist Exam date and time: 04/05/2023 10:44 PM Age: 68 years old Clinical indication: Other: Post reduction TECHNIQUE: Imaging protocol: Radiologic exam of the right wrist. Views: 1 or 2 views. COMPARISON: CR XR WRIST RT COMPLETE 04/05/2023 9:09 PM FINDINGS: Limitations: Splint material obscures osseous and soft tissue detail. Bones/joints: Closed reduction results in neutral volar tilt of the distal radial fracture. Soft tissues: Unremarkable. IMPRESSION: Successful closed reduction of distal radial fracture. Dictated and Authenticated by: Giancarlo Torres MD. Ordering:MIAN Andrews MD
--- NOTE | 2023-04-05 23:00 | DI.VRAD_ITS ---
PROCEDURE INFORMATION: Exam: XR Right Forearm Exam date and time: 04/05/2023 10:47 PM Age: 68 years old Clinical indication: Other: Fall TECHNIQUE: Imaging protocol: Radiologic exam of the right forearm. Views: 2 views. COMPARISON: CR XR WRIST RT LIMITED 04/05/2023 10:44 PM FINDINGS: Limitations: Splint material obscures osseous and soft tissue detail. Bones/joints: Closed reduction results in neutral volar tilt of the distal radial fracture. Soft tissues: Normal. IMPRESSION: Successful closed reduction of distal radial fracture. Dictated and Authenticated by: Giancarol Torres MD. Ordering:MIAN Andrews MD
== END 2023-04-05 23:31 | disposition home or self-care (01) ==
PROVIDERS: Emergency Provider Registered Nurse Emergency
DX: S52.501A Unspecified fracture of the lower end of right radius, initial encounter for closed fracture (principal); S52.601A Unspecified fracture of lower end of right ulna, initial encounter for closed fracture; W01.0XXA Fall on same level from slipping, tripping and stumbling without subsequent striking against object, initial encounter
CPT/HCPCS: 99284; 25605; 73090; 73100; 73110

== ENCOUNTER 2023-04-15 11:34 | Outpatient (CLI) | payer MEDICARE, SELFPAY ==
--- NOTE | 2023-04-15 10:15 | DI.RAD_ITS ---
Exam(s) XR WRIST RT LIMITED EXAM: XR WRIST RT LIMITED INDICATION: f/u R DISTAL RADIUS/ULNA. COMPARISON: CR,XR XR FOREARM RT from 04/05/2023 CR,XR XR WRIST RT LIMITED from 04/05/2023 CR,XR XR WRIST RT COMPLETE from 04/05/2023 TECHNIQUE: 2D digital imaging was performed. Two views. FINDINGS: A splint remains in place. There has been no change in the alignment of the distal radial fracture. The fracture of the tip of the ulnar styloid is faintly visualized. DATA REPOSITORY: RADIATION DOSE DELIVERED:
== END 2023-04-15 11:35 | disposition home or self-care (01) ==
LOC: DIORS 11:35
PROVIDERS: Visit Provider Physician Assistant
DX: S52.125D Nondisplaced fracture of head of left radius, subsequent encounter for closed fracture with routine healing (principal); S52.614D Nondisplaced fracture of right ulna styloid process, subsequent encounter for closed fracture with routine healing; X58.XXXD Exposure to other specified factors, subsequent encounter
CPT/HCPCS: 99213; 73100

== ENCOUNTER 2023-04-22 10:02 | Outpatient (CLI) | payer MEDICARE, SELFPAY ==
--- NOTE | 2023-04-22 09:15 | DI.RAD_ITS ---
Exam(s) XR WRIST RT LIMITED EXAM: XR WRIST RT LIMITED CLINICAL HISTORY: F/U WRIST. TECHNIQUE: 2D digital imaging was performed of the right wrist. Two views were obtained. PA and la teral views were obtained. COMPARISON: CR XR WRIST RT LIMITED from 04/15/2023 FINDINGS: BONES: There is again seen and displaced ulnar styloid process fracture. There has been no change in alignment of the fracture involving the distal metaphysis of the right radius. No new fracture is s een. No bony destructive lesion is seen. JOINTS: The carpal bones are normally aligned. Degenerative changes are seen at the 1st CMC joint. SOFT TISSUE: Normal. IMPRESSION: Stable distal radial and ulnar fractures. DATA REPOSITORY: RADIATION DOSE DELIVERED:
== END 2023-04-22 10:03 | disposition home or self-care (01) ==
LOC: DIORS 10:03
PROVIDERS: Visit Provider Student in an Organized Health Care Education/Training Program
DX: S52.501A Unspecified fracture of the lower end of right radius, initial encounter for closed fracture (principal); S52.601A Unspecified fracture of lower end of right ulna, initial encounter for closed fracture; X58.XXXA Exposure to other specified factors, initial encounter; M72.0 Palmar fascial fibromatosis [Dupuytren]
CPT/HCPCS: 99213; 73100

== ENCOUNTER 2023-04-26 10:51 | Day surgery (SDC) | payer MEDICARE, SELFPAY ==
[2023-04-26] VITALS (9 sets, daily range): BP systolic 103–130; BP diastolic 56–77; PULSE 48–65; RESP 13–19; TEMP 35.9–36.5; O2SAT 96–100; BMI 22.0
--- NOTE | 2023-04-26 09:51 | W.PM.DSUDISC ---
Date of service: 04/26/23 Time of Service: 11:50 Discharge Plan Disposition Patient Disposition: Home Condition: Good Discharge Details Reason For Visit: (R) WRIST FX Attending Provider: Joe Muniz Primary Care Provider: Kim,[facility] Home Meds and New Rx's Prescriptions: New acetaminophen 500 mg tablet 500 mg PO Q6H PRN (Reason: pain) Qty: 60 2RF ibuprofen 600 mg tablet 600 mg PO TID PRN (Reason: pain) Qty: 60 0RF hydrocodone-acetaminophen 5-325 mg tablet 1 tab PO Q6H PRN (Reason: severe pain) Qty: 6 0RF Rx Instructions: Take one tablet up to every 6 hours as needed for severe postoperative pain Continued cetirizine 10 mg tablet 10 mg PO DAILY PRN sertraline 100 mg Tablet 150 mg PO HS omeprazole 20 mg Capsule,Delayed Release(Dr/Ec) 20 mg PO HS latanoprost 0.005 % drops 1 drp ophthalmic (eye) HS Patient Comments: PLACE ONE DROP INTO BOTH EYES NIGHTLY alendronate 70 mg tablet 70 mg PO QWEEK Patient Comments: TAKE ONE TABLET BY MOUTH EVERY 7 DAYS IN THE MORNING WITH FULL GLASS OF WATER ON EMPTY STOMACH; DON'T LIE DOWN FOR 30 MIN. Discontinued naproxen sodium [Aleve] 220 mg capsule 440 mg PO BID PRN Discharge Instructions Additional Instructions: Wrist Fracture Fixation Discharge Instructions Activity: You should keep the hand/wrist elevated as much as possible for the first few days. You may use the other fingers as tolerated but avoid trying to do too much too soon. You may perform light activities with the splint in place. Dressing/Cast: Your splint should stay in place at all times. Do NOT get it wet. You may loosen the RETA wrap if you feel it is too tight and then rewrap more loosely. Medications: - You should take Tylenol and Ibuprofen for baseline pain control. - You have been prescribed a stronger pain medication, Hydrocodone, for breakthrough pain. - You may apply ice over the wrist, just double bag so it doesn't get wet. Follow-up: 10-14 days Referrals: Joe Muniz MD [ [facility] STAFF PHYSICIAN] - Equipment/Supplies: Splint Activity:: Elevate Remove Dressings/Wound Care:: Do Not Remove Shower/Bathe:: Cover Diet:: As Tolerated Discharge Orders Discharge Orders: Discharge Order (Routine); Ordered 04/26/23 Ordered By: Anupama Aldridge
[2023-04-26] MEDS: Lactated Ringers 1,000 ML 80 ML IV (11:20)
--- NOTE | 2023-04-26 11:39 | W.ANESPRE ---
General Info Date of Service Date Performed: 04/26/23 Height: 5 ft 5 in Weight: 60 kg Body Mass Index (BMI): 22.0 Surgical Procedure: Operation Date: 04/26/23 13:55 Proposed Procedure Side Surgeon p Wrist ORIF Distal Radius Right Joe Muniz MD s Palmar Fasciectomy Right Joe Muniz MD Meds Allergies and Home Medications Allergies Allergy/AdvReac Type Severity Reaction Status Date / Time azithromycin [From Zithromax] Allergy Other (See Unverified 04/26/23 11:23 Comment) erythromycin base Allergy Unverified 04/26/23 11:23 codeine AdvReac Nausea Unverified 04/26/23 11:23 Home Medication Medication Instructions Recorded omeprazole 20 mg capsule,delayed 20 mg PO HS 07/16/20 release sertraline 100 mg tablet 150 mg PO HS 07/16/20 cetirizine 10 mg tablet 10 mg PO DAILY PRN 04/22/23 alendronate 70 mg tablet 70 mg PO QWEEK 04/25/23 latanoprost 0.005 % eye drops 1 drp ophthalmic (eye) HS 04/25/23 acetaminophen 500 mg tablet 500 mg PO Q6H PRN pain #60 tabs 04/26/23 hydrocodone 5 mg-acetaminophen 325 1 tab PO Q6H PRN severe pain #6 04/26/23 mg tablet tabs ibuprofen 600 mg tablet 600 mg PO TID PRN pain #60 tabs 04/26/23 Current Visit Medications: Current Medications Generic Name Dose Route Start Last Admin Trade Name Freq PRN Reason Stop Dose Admin Acetaminophen 650 mg 04/26/23 09:50 Acetaminophen 325 Mg Tab PO 05/26/23 09:49 Q4H PRN PRN Hydrocodone Bitart/Acetaminophen 0 tab 04/26/23 09:50 Hydrocodone 5/Acetaminophen 325 Tab PO 05/26/23 09:49 Q3H PRN PRN Pain Ringer's Solution 1,000 mls @ 80 mls/hr 04/26/23 06:00 04/26/23 11:20 IV 04/26/23 23:59 80 mls/hr INFUSION TERESO Administration Cefazolin Sodium/Dextrose 2 gm in 50 mls @ 100 mls/hr 04/26/23 06:00 Ancef Duplex IVPB 04/26/23 23:59 PREOP TERESO IV Miscellaneous Supplies 1 each 04/26/23 06:00 Iv Access IV 04/26/23 23:59 DIRECTED TERESO Sodium Chloride 0 ml 04/26/23 06:00 Normal Saline Flush 10 Ml Syr IV 04/26/23 23:59 PRN PRN Sodium Chloride 0 ml 04/26/23 06:00 Normal Saline 10 Ml Vial IJ 04/26/23 23:59 DIRECTED PRN Sterile Water 0 ml 04/26/23 06:00 Water,Injection,Sterile 10 Ml Vial IJ 04/26/23 23:59 DIRECTED PRN PFSH Active Problems Active Problems: Problem Status Onset Code Pulmonary embolism I26.99 Anxiety F41.9 GERD (gastroesophageal reflux disease) K21.9 S/P TKR (total knee replacement) Z96.659 Dupuytren's contracture of right hand M72.0 Fracture of distal end of right radius and ulna S52.501A, S52.601A Medical History Medical History History of trigger finger Viral pneumonia March 2023 Medical History Comments:: Baseline low blood pressure; had hypotension postop that delayed discharge after last TKA Surgical History Surgical History Hx of arthroscopy of right knee 2005; post surgical pulmonary embolism Tobacco Smoking/Tobacco Use Status: Never Alcohol Alcohol Intake: current Alcohol intake frequency: 0-2 drinks per day Alcohol type: wine Substance Use Substance use: Never Substance use type: does not use Vital Signs and Lab Results Vital Signs Most Recent Vital Signs in EMR: Most Recent Vital Signs Temp Pulse Resp BP Pulse Ox 35.9 C L 63 16 103/68 97 04/26/23 11:04 04/26/23 11:04 04/26/23 11:04 04/26/23 11:04 04/26/23 11:04 Lab Results Blood Type / Crossmatch: No Data to Display Complete Blood Count: No Data to Display Complete Metabolic Panel: No Data to Display Liver Function Panel: No Data to Display Coagulation Panel: No Data to Display Cardiac Panel: No Data to Display Arterial Blood Gas: No Data to Display Venous Blood Gas: No Data to Display Pancreas Panel: No Data to Display Thyroid Panel: No Data to Display Infectious Disease: No Data to Display Blood Cultures: No Data to Display Toxicology Panel: No Data to Display Anesthesia Assessment and Plan Anesthesia History Personal History: No History of Anesthesia Complications Family History: No Family History of Anesthesia Complications Exercise Tolerance Exercise Tolerance: Metabolic Equivalents>4 Pertinent Negatives Pertinent Negatives: No Symptoms of GERD and No Major Cardiovascular Symptoms or Complaints Cardiac & Pulmonary Exam Cardiac Exam: Normal S1/S2 Heart Sounds Pulmonary Exam: Clear Bilateral Breath Sounds Implantable Cardiac Device Does patient have a Pacemaker or an ICD?: No Airway Exam Known Difficult Airway: No Mallampati Class: 1 Mouth Opening: Normal (> 3cm) Thyromental Distance: Greater than 3 cm Neck Range of Motion: Full ROM Neck Circumference: Normal Teeth Condition: Normal Dentition ASA Classification ASA Score: ASA 2 Emergency Case?: No NPO Status NPO Status: NPO Clears >2 hours, Solids >8 hours Anesthesia Plan Resuscitation Status: Full Code Anesthesia Technique: General Anesthesia Airway Planned: Endotracheal Tube Pain Management: Surgeon and patient request nerve block Monitors Used: Standard Monitors and SedLine Preoperative Comments:: Plan for Right Axillary Block under GA/ETT. Patient explained risks and benefits for block under GA, but elected with use of nerve stimulator and US guidance.
--- NOTE | 2023-04-26 12:00 | DI.RAD_ITS ---
Exam(s) XR WRIST RT LIMITED EXAM: XR WRIST RT LIMITED CLINICAL HISTORY: closed fracture right distal radius and ulna. TECHNIQUE: 2D digital imaging was performed. COMPARISON: CR XR WRIST RT LIMITED from 04/15/2023 FINDINGS: Fluoroscopy provided during ORIF distal radius fracture with placement of a volar fixation plate. See procedure report for details. Total fluoroscopy time 1 minutes 47 seconds IMPRESSION: Radiation exposure 0 index/cumulative dose:Billr= 0.5424 mGy DATA REPOSITORY: RADIATION DOSE DELIVERED:
[2023-04-26] MEDS: ceFAZolin 2 GM/50 ML BAG IVPB (12:45)
[2023-04-26] MEDS: Bupivacaine 0.25% Pres-Free 30 ML VIAL (14:11)
--- NOTE | 2023-04-26 14:17 | W.ANESNERVE ---
Nerve Block Single Injection Procedure Date and Time Date Performed: 04/26/23 Procedure Start: 12:41 Location Where Procedure Performed Procedure Location: Operating Room Procedure Stop: 12:48 Reason Performed: Postoperative Analgesia Requesting Provider: Joe Muniz Timeout Performed Timeout Performed: Yes Monitoring Used ECG, Blood Pressure, SpO2 and See EMR for corresponding vital signs Sterility Sterility: Hand Hygiene, Surgical Cap, Surgical Mask, Sterile Gloves and Chlorhexidine Sedation Given During Procedure Sedation Given (Indicate Dose Given): Other: Medication/Route/Dose:: N/A Patient Mental Status Patient Mental Status: Performed under general anesthesia Nerve Block 1st Nerve Block: Laterality: Right Block Type: Axillary Ultrasound Image Saved?: Yes Needle / Catheter Used: 80mm SonoPlex II Local Anesthetic Bolus (Indicate Dose Given): Injected in 3-5ml increments after negative blood aspiration, Lidocaine 2% Dose:: 5mL and Ropivacaine 0.5% Dose:: 15mL Additives (Indicate Dose Given): None Ultrasound: Sterile probe cover and gel used Nerve Stimulator: Supplement to Ultrasound use and No twitch or parasthesia noted < 0.5 mA Paresthesia: None Procedure Tolerated: No Complications Procedure Outcome: Successful Performed By: Zully Simon
--- NOTE | 2023-04-26 14:44 | ROE_ITS ---
Date of service: 04/26/23 Time of Service: 14:44 Operative Note Operative Note DATE OF PROCEDURE: 04/26/23 PRE-OP DIAGNOSIS: Right Distal Radius Fracture Right Middle Finger Contracture/Palmar Fibromatosis POST-OP DIAGNOSIS: other (Right distal radius fracture, right middle finger contracture) PROCEDURE: Open Reduction and Internal Fixation of Right Distal Radius Contracture release and tenolysis of right middle finger flexor tendons at the A1 kiran level SURGEON: Joe Muniz [employer] MANAGER: Anupama Aldridge ANESTHESIA TYPE: General LMA/ETT and Primary Nerve Block Refer to Anesthesia Record ESTIMATED BLOOD LOSS: 10 PATHOLOGY: none sent TOURNIQUET TIME: 67 COMPLICATIONS: None Patient was transported to: PACU Patient's condition: stable Implants: Synthes distal radius variable angle plate, narrow with 3 shaft holes Indications: Emilia is a 68-year-old female who I have seen for a distal radius fracture. Given the deformity, displacement, fracture pattern, and effect on daily function, I recommended surgical fixation. I reviewed the risk of the procedure to include bleeding, infection co-pay, stiffness, damage to nerves and vessels, damage to muscles and tendons, malunion, nonunion, hardware prominence, tendon rupture, need for repeat procedures. Despite these risks, the patient elected to proceed. Findings: There is notable scarring seen on the flexor tendons of the middle finger. An aggressive tenolysis was performed of the flexor tendons in this region and range of motion was tested and noted to be much improved. There is a distal radius fracture which was primarily extra-articular. It was reduced and fixed with a Synthes volar locking plate. Procedure Description: Emilia was greeted in the preoperative holding area. The correct patient and site was confirmed and marked. The history and physical was updated. The consent was reviewed the patient and signed. The patient was taken to the operating room and placed in the supine position. All bony problems were well- padded. The right arm was placed onto a radiolucent hand table. An axillary block was administered under ultrasound guidance. Then, A nonsterile tourniquet was placed high up on the arm. Prophylactic antibiotics in the form of cefazolin were administered. The left arm was prepped with ChloraPrep and draped in a standard fashion. A timeout was performed for safe surgery. Starting with the right middle finger, an incision was made within the distal palmar crease and then extended proximally. This was taken off sharply the skin. Blunt dissection was used to mobilize the soft tissues. The flexor tendon was exposed. There was no significant fibromatosis encountered in this region. However, there is notable scarring seen around the flexor tendon, especially the level of the A1 kiran. I then incised this tissue from proximal to distal. I mobilized the flexor tendons and released any adhesions between them and the surrounding tissues. I was able to remove the flexor tendons from the wound and fully inspected. At this point range of motion was tested and the finger was able to be fully extended The wound was then irrigated. The skin was closed with 4-0 nylon. Attention was then turned to the distal radius portion of the case. A standard longitudinal incision was made overlying the flexor carpi radialis tendon starting at the distal wrist crease and moving proximally. The skin was incised sharply. The flexor carpi radialis tendon and its sheath is identified. The sheath was opened. The tendon was moved ulnarly in the floor of the sheath was incised. Blunt dissection the flexor pollicis longus muscle belly and tendon were also made radially exposing the pronator quadratus and the distal radius. The printer quadratus was elevated with an ulnar-based flap. This exposed the volar distal radius and the fracture. A jiménez elevator was used for full exposure of the volar surface of the distal radius. The primary fracture line was exposed. Using a series of elevators, curettes, and knife, the fracture was fully debrided of any fibrous tissue and callus formation. I used a freer elevator to help mobilize the fragments. This was a primary ex reticular fracture which was able to be manually distracted and manipulated. I then performed a closed reduction. Using gentle traction and fracture shukri pulation, this reduction was held. Fluoroscopic images were used to confirm adequate reduction. An appropriately sized Synthes volar locking plate was then placed onto the bony surface of the distal radius. Was then held there with a distal radius clamp sandwiching the plate to the distal segment. A single K wire was placed through the distal end. Fluoroscopy was once again used to confirm appropriate positioning of the plate on the distal radius. Unfortunately, this was not the appropriate position for the plate. Once again I tried to reposition the plate but was unable to adequately position it. Therefore, I performed another closed reduction but this time held the reduction utilizing a 1.8 mm K wire through the radial styloid. With the reduction held a narrow Synthes plate with 3 shaft holes was able to be placed onto the distal radius and held in a prone position with a K wire distally and reduction K wire proximally through the slotted hole. Fluoroscopy was utilized to confirm appropriate positioning of the plate. The distal K wire was also in good position for trajectory of the distal screws. A single nonlocking screw was placed to the distal portion of the plate securing the plate against the bone of the distal radial metaphysis. Once again, the plate was evaluated to make sure it was aligned appropriately. The single screw was also checked to make sure it was in appropriate positioning for trajectory of future screws. The remainder of the screws within the volar locking plate were filled with locking screws. These were made sure not to penetrate the dorsal cortex. Once these were applied the proximal portion of the plate was further reduced down onto the shaft, which further reduce the distal segment. This was held in position with a tightened reduction K wire. Fluoroscopy was then used against confirm appropriate reduction. Nonlocking screws were placed within the 3 shaft screw holes. Final x-rays were obtained which demonstrated adequate reduction and positioning of hardware. The dorsal sunrise view was also obtained to ensure correct sizing of screws. The wound was then thoroughly irrigated. The pronator quadratus was reapproximated with a 0 Vicryl. The tourniquet was released and there was no notable vascular injury although there was some general ooze. The fingers were warm and well-perfused. The deep dermal layer was closed with a 2-0 Vicryl. The skin was closed with 4-0 nylon. The wound was dressed with Xeroform, 4 x 4's, web roll. A short arm splint was applied. At the end the case all counts are correct. Patient was transferred back to the PACU in stable condition.
[2023-04-26] MEDS: Albuterol 2.5 MG/3 ML INH SOLN VIAL UPD (15:06)
--- NOTE | 2023-04-26 15:18 | W.ANESPOSTOP ---
Postoperative Evaluation Date, Time and Location Date Performed: 04/26/23 Time Performed: 15:18 Patient Location: PACU Vital Signs Most Recent Imported Vital Signs: Most Recent Vital Signs Temp Pulse Resp BP Pulse Ox 36.5 C 60 19 130/67 100 04/26/23 15:08 04/26/23 15:08 04/26/23 15:08 04/26/23 15:08 04/26/23 15:08 Pain Score Most Recent Pain Score: Most Recent Pain Score Pain Level 0 04/26/23 15:08 Assessment Mental Status: Awake (Alert & Oriented to Patient Baseline) Airway and Respiratory Function: Patent airway with normal (patient baseline) respiratory exam Cardiovascular Function: Hemodynamically Stable Hydration Status: Adequately Hydrated Nausea & Vomiting: No Nausea or Vomiting Pain: Pt. Denies Any Pain Peripheral Nerve Block: Regional nerve block not resolved at time of post operative discharge Postoperative Comments:: neb order for wheezing. does feel her throat is sore and she is coughing, discussed should go away in 24 hrs.
== END 2023-04-26 16:30 | disposition home or self-care (01) ==
PROVIDERS: Visit Provider Student in an Organized Health Care Education/Training Program
PROC: (CPT 25607; principal; 2023-04-26 13:45)
PROC: (CPT 25607; 2023-04-26 13:45)
DX: S52.501A Unspecified fracture of the lower end of right radius, initial encounter for closed fracture (principal); M72.0 Palmar fascial fibromatosis [Dupuytren]; S52.601A Unspecified fracture of lower end of right ulna, initial encounter for closed fracture; X58.XXXA Exposure to other specified factors, initial encounter
CPT/HCPCS: 25607; 26440; 26045; C1889; 76942; 73100; J0690; J1100; J1885; J2001; J2405; J7613

== ENCOUNTER 2023-05-09 09:42 | Outpatient (CLI) | payer MEDICARE, SELFPAY ==
--- NOTE | 2023-05-09 09:30 | DI.RAD_ITS ---
Exam(s) XR WRIST RT LIMITED EXAM: XR WRIST RT LIMITED CLINICAL HISTORY: S/P ORIF L WRIST. TECHNIQUE: 2D digital imaging was performed. Two images were obtained. PA and lateral views were ob tained. COMPARISON: CR XR WRIST RT LIMITED from 04/26/2023 FINDINGS: BONES: There are stable post operative changes present. No new fracture or dislocation. JOINTS: Degenerative changes are seen in the wrist. SOFT TISSUE: Normal. IMPRESSION: Stable postoperative changes. DATA REPOSITORY: RADIATION DOSE DELIVERED:
== END 2023-05-09 09:43 | disposition home or self-care (01) ==
LOC: DIORS 09:44
PROVIDERS: Visit Provider Student in an Organized Health Care Education/Training Program
DX: M24.541 Contracture, right hand; S52.501D Unspecified fracture of the lower end of right radius, subsequent encounter for closed fracture with routine healing; S52.601D Unspecified fracture of lower end of right ulna, subsequent encounter for closed fracture with routine healing; X58.XXXD Exposure to other specified factors, subsequent encounter
CPT/HCPCS: 73100

== ENCOUNTER 2023-06-06 11:52 | Outpatient (CLI) | payer MEDICARE, SELFPAY ==
--- NOTE | 2023-06-06 11:15 | DI.RAD_ITS ---
Exam(s) XR WRIST RT LIMITED EXAM: XR WRIST RT LIMITED CLINICAL HISTORY: F/U FRACTURE ORIF. TECHNIQUE: 2D digital imaging was performed. Three images were obtained. PA and lateral views were obtained. COMPARISON: CR XR WRIST RT LIMITED from 05/09/2023 FINDINGS: BONES: There are stable post operative changes present. No new fracture or dislocation. The displace d ulnar styloid process tip fracture is again noted. There has been no change in alignment of the di stal radial fracture orthopedic hardware. The fracture line is less well visualized suggesting inter janette healing. JOINTS: The joint spaces are well maintained. Degenerative changes are seen in the hand and wrist. SOFT TISSUE: Normal. IMPRESSION: Healing distal radial fracture. Stable ulnar styloid process fracture. DATA REPOSITORY: RADIATION DOSE DELIVERED:
== END 2023-06-06 11:53 | disposition home or self-care (01) ==
LOC: DIORS 11:52
PROVIDERS: Visit Provider Student in an Organized Health Care Education/Training Program
DX: X58.XXXD Exposure to other specified factors, subsequent encounter; S52.251D Displaced comminuted fracture of shaft of ulna, right arm, subsequent encounter for closed fracture with routine healing
CPT/HCPCS: 73100

== ENCOUNTER → 2023-07-25 10:28 | Outpatient (BNVA) | payer MEDICARE, SELFPAY | PROVIDERS: Visit Provider Student in an Organized Health Care Education/Training Program | DX: S52.501D Unspecified fracture of the lower end of right radius, subsequent encounter for closed fracture with routine healing (principal); S52.601D Unspecified fracture of lower end of right ulna, subsequent encounter for closed fracture with routine healing; X58.XXXD Exposure to other specified factors, subsequent encounter ==